=== PATIENT | male | born 1945 | race Caucasian/White ===

== ENCOUNTER 2021-11-16 07:01 | Observation (INO) | payer OTHER ==
[2021-11-16] MEDS ORDERED: NA CHLORIDE 0.9% 1,000 ML ONE ×2 (07:17→13:49)
[2021-11-16] MEDS ORDERED: FENTANYL CITR 100 MCG/2 ML ONE (09:12)
[2021-11-16] MEDS ORDERED: LIDOCAINE 2% MPF 5 ML VIAL ONE (09:12)
[2021-11-16] MEDS ORDERED: propofoL 200 MG/20 ML VIAL IV ONE (09:12)
[2021-11-16] MEDS ORDERED: ROCURONIUM 50 MG/5 ML VIAL IV ONE (09:12)
[2021-11-16] MEDS ORDERED: ONDANSETRON 4 MG/2 ML VIAL ONE (09:13)
[2021-11-16] MEDS ORDERED: CELECOXIB 100 MG CAPSULE ONE (09:15)
[2021-11-16] MEDS ORDERED: ACETAMINOPHEN 500 MG TAB ONE (09:15)
--- NOTE | 2021-11-16 09:43 | P.HP ---
Date of Service: 11/16/21 PC: This 76-year-old male presents for an elective laparoscopic cholecystectomy with intraoperative cholangiogram. HPC: Patient has been complaining of right upper quadrant abdominal pain, radiating into his back. He has had a few episodes of this recently and has caused him great concern. The pain he says has been intolerable, and he does not want to undergo another bout with this. PSHx: NAD PMHx: Hypertension Social Hx: No known allergies Sys R: No cough, wheeze, shortness of breath. No chest pain or palpitations. Says he has good exercise tolerance. No urinary complaints O/E: Awake alert vital signs are stable. Calm and in good spirits today HEENT: Nonicteric Chest: Chest movement equal bilaterally Abd: Soft nontender today [place]: Intact Data: Has documented cholelithiasis Impression: Chronic cholecystitis with cholelithiasis, biliary colic Plan: I will take him to the operating room for laparoscopic possible open cholecystectomy with a cholangiogram. The risks of this procedure have been discussed. The possibility of bleeding, infection, injury to bile ducts blood vessels and intestines has been described. The possible need for an open and/or further surgeries and procedures was discussed. He understands and wants us to proceed.
[2021-11-16] MEDS ORDERED: VECURONIUM 10 MG/VIAL IV ONE (09:58)
[2021-11-16] MEDS ORDERED: NS 0.9% VIAL 10 ML ONE (09:58)
[2021-11-16] MEDS ORDERED: GLYCOPYRROLATE 0.2 MG/ML SYR ONE ×2 (10:13→10:53)
[2021-11-16] MEDS ORDERED: NEOSTIGMINE 1 MG/ML -10 ML VIAL ONE (10:54)
--- NOTE | 2021-11-16 11:12 | P.OP ---
Preoperative diagnosis: Cholecystitis with cholelithiasis, biliary colic Postoperative diagnosis: The same Primary procedure: Laparoscopic cholecystectomy Secondary procedure: Cholangiogram Other procedure(s): Tap block Anesthesia: General anesthesia Estimated blood loss: Less than 10 cc Specimen: Gallbladder and contents Operative Technique: The patient was brought to the operating room and placed supine on the table. After the induction of adequate general endotracheal anesthesia, the area of the abdomen was prepped with a DuraPrep solution, and he was draped in usual aseptic manner. A subumbilical incision was made. This was brought down through the skin and subcutaneous tissue. A finger was used to dissect down to the fascia itself.. The Veress needle was used to enter the peritoneal cavity after elevating the anterior abdominal wall using a towel clip. We were able to enter the peritoneal cavity with a pop with the Veress needle. The hanging drop test was showing good flow of fluid into the peritoneal cavity. The abdomen then was easily insufflated to approximately 12 mmHg. Under direct vision a 5 mm trocar was placed in the area of the umbilicus. With our 5 mm scope in we were able to place the upper midline and 2 on the right lateral side of the abdominal wall. At this point we also did a tap block with 0.25% Marcaine solution. Attention was turned towards the umbilicus and under direct vision we were able to use a blunt trocar to allow us to place a 10 mm camera. With the patient placed in reverse Trendelenburg and rolled to the left the right upper quadrant was now accessible. The omentum was stuck up over the liver. This was gently brought back down. We could see the gallbladder with omental adhesions to his serosal surface. These were gently taken down using blunt and sharp dissection as well as judicious use of the electrocautery. As we swept around Murphy's pouch we gently push the tissue down and away. This area however did have a lot of dense reactive old scar tissue in the area. The cystic artery was identified. It was clipped and divided. The cystic duct was now seen. It was freed up to identify that this was the absolute structure. Having obtained the critical view a clip was placed between the gallbladder and the cystic duct. An opening was made into the cystic duct through which we obtained a cholangiogram the cholangiogram demonstrated good flow of fluid into the duodenum, however I was not happy with how the extrahepatic biliary tree appeared. We also seem to have filled the pancreatic duct. At this point the catheter was fed completely down into the duodenum and the balloon was blown up to verify its position. There does not an obstruction to the extrahepatic biliary tree that was palpable or visible on the cholangiogram. The catheter was now withdrawn. Clips were placed on the distal portion of the cystic duct. The gallbladder was now dissected free from the liver bed, placed into an Endo Catch, and brought out through the umbilical trocar site. At this point the abdomen is inspected to ensure adequate hemostasis. The irrigating fluid was aspirated from the peritoneal cavity. The umbilical trocar site was approximated using 2 sutures placed using the Endo Close and an absorbable suture. The pneumoperitoneum was then collapsed, the trochars removed, and the sutures tied. At the end of the procedure he was stable and sent to the recovery room. Needle sponge instrument count were correct. No drains were placed. Complications: None Transferred to: Recovery Room Condition: Good
[2021-11-16] MEDS: HYDROMORPHONE HCL 1 MG/ML INJ ONE ×4 (11:18→11:41)
[2021-11-16] MEDS ORDERED: INSULIN -REGULAR HUMAN 50 UNIT/0.5 ML ML ONE (11:25)
[2021-11-16 11:47] VITALS: O2SAT 96
--- NOTE | 2021-11-16 12:41 | RAD REPORT ---
EXAM DESCRIPTION: RAD - Cholangiogram Oper-Xray Or - 11/16/2021 12:27 pm CLINICAL HISTORY: LAP MOE Abdominal pain COMPARISON: Abdomen Exam Complete dated 10/29/2021 FINDINGS: Cystic duct injection was performed by operating surgeon. Common bile duct is normal in ca liber without retained stone visible. Total fluoro time: 0.5 minutes 10 fluoroscopic images submitted. IMPRESSION: No retained common bile duct stone.
[2021-11-16] MEDS ORDERED: LIDOCAINE JELLY 2% 5 ML SYRINGE TOP ONE (15:21)
[2021-11-16] MEDS ORDERED: PROMETHAZINE INJ 25 MG/ML AMP IV PRN (15:58)
[2021-11-16] MEDS ORDERED: MORPHINE 2 MG/ML SYR IV PRN (15:58)
--- OUTSIDE RECORDS SUMMARY | 2021-11-16 16:03 | XMS REPORT | Continuity of Care Document ---
:1945 Author Organization [facility] t Address [address] [place] [address] [address]. [address] [place] [address] Care Team Providers Name Role Phone Rachel Tyrone Primary Care Physician Chris HESTER Attending Clinician DONN Attending Clinician Unavailable LISA Attending Clinician Unavailable Doctor Unassigned, Name Attending Clinician Unavailable Donn HESTER Attending Clinician Kasia HESTER Attending Clinician Faustino BECKER Admitting Clinician Unavailable Payers Payer Name Policy Type Policy Number Effective Date Expiration Date S ource Problems Condition Condition Condition Status Onset Resolution Last Treating Co mments Source Name Details Category Date Date Treatment Clinician Date Obesity Obesity Disease Active Univers (BMI (BMI 4-28 ity of 30-39.9) 30-39.9) 00:00: [place] 00 Medical Branch PAD PAD Disease Active Univers (periphera (periphera 4-28 it y of l artery l artery 00:00: [place] disease) disease) 00 Medica l Branch 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 [place] Ischemic Ischemic Disease Active Unive rs cardiomyop cardiomyop 4 it y of athy athy 00:00: Medical Branch Coronary Coronary Disease Active Unive rs artery artery 404 ity of disease disease 00:00: [place] involving involving 00 Medi adalberto coeur d'alene coeur d'alene Branch coronary coronary artery artery without without angina angina pectoris pectoris S/P left S/P left Disease Active Unive rs heart heart 3-17 ity of catheteriz catheteriz [place] at[place] at[place] by 00 Medica l percutaneo percutaneo Br anch us us approach approach STEMI (ST STEMI (ST Disease Active Uni vers elevation elevation 2-12 ity of myocardial myocardial [place] infarction infarction 00 Me dical ) ) Branch Allergies, Adverse Reactions, Alerts Allergy Allergy Status Severity Reaction(s) Onset Inactive Treating Comm ents Source Name Type Date Date Clinician ICOSAPEN DRUG Active Low Other-Cmnt Univ ers T ETHYL INGREDI 6- ity of 00:00: [place] [facility] Icosapen Drug Active Other - See States Uni vers t Ethyl Intolera comments 11-19 causes ity o f nce 00:00: severe constipat Medical ion and Branch does not wish to take again Furosemi Propensi Active Other - See Patient Univers de ty to comments 08-09 states ity of adverse 00:00: this [place] reaction 00 makes him Medic al s have to Branch use the restroom right away FUROSEMI DRUG Active Other-Cmnt Univ ers DE INGREDI 08-09 ity of 00:00: [place] 00 Medical Branch Lisinopr Propensi Active Cough Univer s il ty to 01-10 ity of adverse 00:00: [place] reaction 00 Medical s Branch LISINOPR DRUG Active COUGH Univers IL INGREDI 01-10 ity of 00:00: [place] 00 Medical Branch Penicill Propensi Active Itching Unive rs in ty to 16 ity of adverse 00:00: [place] reaction 00 Medical s to Branch drug PENICILL DRUG Active Med ITCHING Univers IN INGREDI -16 ity of 00:00: [place] 00 Medical Branch Social History Social Habit Start Date Stop Date Quantity Comments Source Exposure to Not sure [facility] SARS-CoV-2 (event) Medica l [place] Alcohol intake 2021-09-06 2021-09-06 0 /d [facility] 00:00:00 00:00:00 Medical Branch Tobacco use and 2015-07-23 2015-07-23 Never used [facility] exposure 00:00:00 00:00:00 Medical Branch Sex [birth year] [facility] 00:00:00 00:00:00 Medical Branch Smoking Status Start Date Stop Date Source Never smoker [facility] Medications Ordered Filled Start Stop Current Ordering Indication Dosage Frequency Signature Comments Components Source Medication Medication Date Date Medication? Clinician (SIG) Name Name losartan Yes [id number] 100mg Take 1 U nivers 100 mg 5-19 tablet by ity of tablet 00:00: mouth [place] 00 daily. Medical Branch atorvastati Yes [id number] 80mg Take 1 Univers n 80 mg 4-13 tablet by ity of tablet 00:00: mouth at [place] 00 bedtime. Medical Branch atorvastati Yes [id number] 80mg Take 1 Univers n 80 mg 4-13 tablet by ity of tablet 00:00: mouth at [place] 00 bedtime. Medical Branch metroNIDAZO Yes [id number] 500mg Take 1 Univers LE 500 mg 3-29 tablet by ity o f tablet 00:00: mouth [place] 00 every 8 Medical (eight) Branch hours. dicyclomine Yes [id number] 20mg Take 1 Univers 20 mg 3-29 tablet by ity of tablet 00:00: mouth 4 [place] 00 (four) Medical times Branch daily. cephALEXin 202-0 Yes [id number] 500mg Take 1 Univers (KEFLEX) 3-29 capsule by ity o f 500 mg 00:00: mouth 3 [place] capsule 00 (three) Medical times Branch daily. ondansetron 2021-0 Yes [id number] 4mg Take 1 Univers 4 mg 3-29 tablet by ity of disintegrat 00:00: mouth [place] ing tablet 00 every 4 Medica l (four) Branch hours as needed for Nausea and Vomiting (N/V). metroNIDAZO 2021-0 Yes [id number] 500mg Take 1 Univers LE 500 mg 3-29 tablet by ity o f tablet 00:00: mouth [place] 00 every 8 Medical (eight) Branch hours. dicyclomine 2021-0 Yes [id number] 20mg Take 1 Univers 20 mg 3-29 tablet by ity of tablet 00:00: mouth 4 [place] 00 (four) Medical times Branch daily. cephALEXin 2021-0 Yes [id number] 500mg Take 1 Univers (KEFLEX) 3-29 capsule by ity o f 500 mg 00:00: mouth 3 [place] capsule 00 (three) Medical times Branch daily. ondansetron 2021-0 Yes [id number] 4mg Take 1 Univers 4 mg 3-29 tablet by ity of disintegrat 00:00: mouth [place] ing tablet 00 every 4 Medica l (four) Branch hours as needed for Nausea and Vomiting (N/V). sitaGLIPtin Yes 50mg Take 50 mg Univers 50 mg 1-28 by mouth ity of tablet 10:54: daily. [place] [facility] imipramine 2021-0 Yes 10mg Take 10 mg U nivers 10 mg 1-28 by mouth ity of tablet 10:54: at [place] 01 bedtime. Medical Branch hydroCHLORO 2021-0 Yes 12.5mg Take 12.5 Univers thiazide 1-28 mg by ity of 12.5 mg 10:54: mouth [place] capsule 01 daily. Medical Branch ascorbic 2021-0 Yes Take by Unive rs acid 1-28 mouth. ity of (VITAMIN C 10:54: [place] ORAL) Medical Branch sitaGLIPtin 2021-0 Yes 50mg Take 50 mg Univers 50 mg 1-28 by mouth ity of tablet 10:54: daily. [place] 01 Medical Branch imipramine 0 Yes 10mg Take 10 mg U nivers 10 mg 1-28 by mouth ity of tablet 10:54: at [place] bedtime. Medical Branch hydroCHLORO 0 Yes 12.5mg Take 12.5 Univers thiazide 1-28 mg by ity of 12.5 mg 10:54: mouth [place] capsule 01 daily. Medical Branch ascorbic 0 Yes Take by Unive rs acid 1-28 mouth. ity of (VITAMIN C 10:54: [place] ORAL) Medical Branch sitaGLIPtin 0 Yes 50mg Take 50 mg Univers 50 mg 1-28 by mouth ity of tablet 10:54: daily. Medical Branch imipramine 0 Yes 10mg Take 10 mg U nivers 10 mg 1-28 by mouth ity of tablet 10:54: at [place] bedtime. Medical Branch hydroCHLORO 0 Yes 12.5mg Take 12.5 Univers thiazide 1-28 mg by ity of 12.5 mg 10:54: mouth [place] capsule 01 daily. Medical Branch ascorbic 0 Yes Take by Unive rs acid 1-28 mouth. ity of (VITAMIN C 10:54: [place] ORAL) Medical Branch sitaGLIPtin 0 Yes 50mg Take 50 mg Univers 50 mg 1-28 by mouth ity of tablet 10:54: daily. Medical Branch imipramine 0 Yes 10mg Take 10 mg U nivers 10 mg 1-28 by mouth ity of tablet 10:54: at [place] bedtime. Medical Branch hydroCHLORO 2021-0 Yes 12.5mg Take 12.5 Univers thiazide 1-28 mg by ity of 12.5 mg 10:54: mouth [place] capsule 01 daily. Medical Branch ascorbic 0 Yes Take by Unive rs acid 1-28 mouth. ity of (VITAMIN C 10:54: [place] ORAL) Medical Branch sitaGLIPtin 0 Yes 50mg Take 50 mg Univers 50 mg 1-28 by mouth ity of tablet 10:54: daily. Medical Branch imipramine 0 Yes 10mg Take 10 mg U nivers 10 mg 1-28 by mouth ity of tablet 10:54: at [place] bedtime. Medical Branch hydroCHLORO 2021-0 Yes 12.5mg Take 12.5 Univers thiazide 1-28 mg by ity of 12.5 mg 10:54: mouth [place] capsule 01 daily. Medical Branch ascorbic Yes Take by Unive rs acid 1-28 mouth. ity of (VITAMIN C 10:54: [place] ORAL) 01 Medical Branch losartan 2020-06 Yes [id number] 100mg Take 1 U nivers 100 mg 1-10 tablet by ity of tablet 00:00: mouth [place] 00 daily. Medical [facility] Branch call clinic to schedule follow up appointmen t for future refills. losartan 2020-06 Yes [id number] 100mg Take 1 U nivers 100 mg 1-10 tablet by ity of tablet 00:00: mouth [place] 00 daily. Medical [facility] Branch call clinic to schedule follow up appointmen t for future refills. losartan 2020-06 Yes [id number] 100mg Take 1 U nivers 100 mg 1-10 tablet by ity of tablet 00:00: mouth [place] 00 daily. [facility] Branch call clinic to schedule follow up appointmen t for future refills. losartan 2020-06 Yes [id number] 100mg Take 1 U nivers 100 mg 1-10 tablet by ity of tablet 00:00: mouth [place] 00 daily. [facility] call clinic to schedule follow up appointmen t for future refills. losartan 2020-06- No [id number] 100mg Take 1 Univers 100 mg 1-10 05-19 tablet by ity of tablet 00:00: 00:00 mouth [place] 00 :00 daily. [facility] call clinic to schedule follow up appointmen t for future refills. carvediloL 2020-06 Yes [id number] 12.5mg Take 1 Univers 12.5 mg 1-02 tablet by ity of tablet 00:00: mouth 2 [place] 00 (two) Medical times [place] daily with meals. carvediloL 2020-06 Yes [id number] 12.5mg Take 1 Univers 12.5 mg 1-02 tablet by ity of tablet 00:00: mouth 2 [place] 00 (two) Medical times [place] daily with meals. carvediloL 2020-06 Yes [id number] 12.5mg Take 1 Univers 12.5 mg 1-02 tablet by ity of tablet 00:00: mouth 2 [place] 00 (two) Medical times Branch daily with meals. carvediloL 2020-06 Yes [id number] 12.5mg Take 1 Univers 12.5 mg 1-02 tablet by ity of tablet 00:00: mouth 2 [place] 00 (two) Medical times Branch daily with meals. carvediloL 2020-1 Yes [id number] 12.5mg Take 1 Univers 12.5 mg 1-02 tablet by ity of tablet 00:00: mouth 2 [place] 00 (two) Medical times Branch daily with meals. clopidogreL 2021-0 Yes [id number] 75mg Take 1 Univers 75 mg 8-13 tablet by ity of tablet 00:00: mouth [place] 00 daily. Medical Branch clopidogreL 2021-0 Yes [id number] 75mg Take 1 Univers 75 mg 8-13 tablet by ity of tablet 00:00: mouth [place] 00 daily. Medical Branch clopidogreL 2021-0 Yes [id number] 75mg Take 1 Univers 75 mg 8-13 tablet by ity of tablet 00:00: mouth [place] 00 daily. Medical Branch clopidogreL 2021-0 Yes [id number] 75mg Take 1 Univers 75 mg 8-13 tablet by ity of tablet 00:00: mouth [place] 00 daily. Medical Branch clopidogreL 2021-0 Yes [id number] 75mg Take 1 Univers 75 mg 8-13 tablet by ity of tablet 00:00: mouth [place] 00 daily. Medical Branch linagliptin 2020-0 Yes Take by Un balbina (TRADJENTA 4-28 mouth. ity of ORAL) 13:26: [place] [address] Medical Branch nortriptyli 1-0 Yes 10mg Take 10 mg Univers ne 10 mg 4-28 by mouth 3 ity o f capsule 13:26: (three) [place] [address] times Medical daily. Branch linagliptin 2020-0 Yes Take by Un balbina (TRADJENTA 4-28 mouth. ity of ORAL) 13:26: [place] [address] Medical Branch nortriptyli 1-0 Yes 10mg Take 10 mg Univers ne 10 mg 4-28 by mouth 3 ity o f capsule 13:26: (three) [place] [address] times Medical daily. Branch linagliptin 1-0 Yes Take by Un balbina (TRADJENTA 4-28 mouth. ity of ORAL) 13:26: [place] [address] Medical Branch nortriptyli 1-0 Yes 10mg Take 10 mg Univers ne 10 mg 4-28 by mouth 3 ity o f capsule 13:26: (three) [place] 38 times Medical daily. Branch linagliptin 2020-0 Yes Take by Un balbina (TRADJENTA 4-28 mouth. ity of ORAL) 13:26: [place] [address] Medical Branch nortriptyli 2020-0 Yes 10mg Take 10 mg Univers ne 10 mg 4-28 by mouth 3 ity o f capsule 13:26: (three) [place] 38 times Medical daily. Branch linagliptin 0 Yes Take by Un balbina (TRADJENTA 4-28 mouth. ity of ORAL) 13:26: [place] [address] Medical Branch nortriptyli 2020-0 Yes 10mg Take 10 mg Univers ne 10 mg 4-28 by mouth 3 ity o f capsule 13:26: (three) [place] 38 times Medical daily. Branch atorvastati 2020-0 Yes [id number] 80mg Take 1 Univers n 80 mg 3-03 tablet by ity of tablet 00:00: mouth at [place] 00 bedtime. Medical Branch atorvastati 2020-0 Yes [id number] 80mg Take 1 Univers n 80 mg 3-03 tablet by ity of tablet 00:00: mouth at [place] 00 bedtime. Medical Branch atorvastati 2020-0 Yes [id number] 80mg Take 1 Univers n 80 mg 3-03 tablet by ity of tablet 00:00: mouth at [place] 00 bedtime. Medical Branch atorvastati 2020-0 2022- No [id number] 80mg Take 1 Univers n 80 mg 3-03 04-13 tablet by ity of tablet 00:00: 00:00 mouth at [place] 00 :00 bedtime. Medical Branch lactulose 2020-0 Yes [id number] 30mL Take 30 mL Univers 10 gram/15 9-12 by mouth 3 ity of mL oral 00:00: (three) [place] solution 00 times Medical daily as Branch needed for Constipati on or For bowel movement. polyethylen 2020-0 Yes [id number] 17g Take 17 g Univers e glycol 9-12 by mouth 2 ity o f (MIRALAX) 00:00: (two) [place] 17 00 times Medical gram/dose daily. Branch powder lactulose 2020-0 Yes [id number] 30mL Take 30 mL Univers 10 gram/15 9-12 by mouth 3 ity of mL oral 00:00: (three) [place] solution 00 times Medical daily as Branch needed for Constipati on or For bowel movement. polyethylen 2020-0 Yes [id number] 17g Take 17 g Univers e glycol 9-12 by mouth 2 ity o f (MIRALAX) 00:00: (two) [place] 17 00 times Medical gram/dose daily. Branch powder lactulose 2020-0 Yes [id number] 30mL Take 30 mL Univers 10 gram/15 9-12 by mouth 3 ity of mL oral 00:00: (three) [place] solution 00 times Medical daily as Branch needed for Constipati on or For bowel movement. polyethylen 2020-0 Yes [id number] 17g Take 17 g Univers e glycol 9-12 by mouth 2 ity o f (MIRALAX) 00:00: (two) [place] 17 00 times Medical gram/dose daily. Branch powder lactulose 2020-0 Yes [id number] 30mL Take 30 mL Univers 10 gram/15 9-12 by mouth 3 ity of mL oral 00:00: (three) [place] solution 00 times Medical daily as Branch needed for Constipati on or For bowel movement. polyethylen 2020-0 Yes [id number] 17g Take 17 g Univers e glycol 9-12 by mouth 2 ity o f (MIRALAX) 00:00: (two) [place] 17 00 times Medical gram/dose daily. Branch powder lactulose 2020-0 Yes [id number] 30mL Take 30 mL Univers 10 gram/15 9-12 by mouth 3 ity of mL oral 00:00: (three) [place] solution 00 times Medical daily as Branch needed for Constipati on or For bowel movement. polyethylen 2020-0 Yes [id number] 17g Take 17 g Univers e glycol 9-12 by mouth 2 ity o f (MIRALAX) 00:00: (two) [place] 17 00 times Medical gram/dose daily. Branch powder mirabegron 2020-0 Yes [id number] 50mg Take 1 Univers 50 mg 5-15 tablet by ity of tablet 00:00: mouth [place] 00 daily. Medical Branch mirabegron 2020-0 Yes [id number] 50mg Take 1 Univers 50 mg 5-15 tablet by ity of tablet 00:00: mouth [place] 00 daily. Medical Branch mirabegron 2020-0 Yes [id number] 50mg Take 1 Univers 50 mg 5-15 tablet by ity of tablet 00:00: mouth [place] 00 daily. Medical Branch mirabegron 2020-0 Yes [id number] 50mg Take 1 Univers 50 mg 5-15 tablet by ity of tablet 00:00: mouth [place] 00 daily. Medical Branch mirabegron 2019-0 Yes [id number] 50mg Take 1 Univers 50 mg 5-15 tablet by ity of tablet 00:00: mouth [place] 00 daily. Medical Branch nitroglycer Yes [id number] .4mg Place 1 Univers in 7-30 tablet ity of (NITROSTAT) 00:00: under the [place] 0.4 mg 00 tongue Medical sublingual every 5 Branc h tablet (five) minutes as needed for Chest pain. nitroglycer Yes [id number] .4mg Place 1 Univers in 7-30 tablet ity of (NITROSTAT) 00:00: under the [place] 0.4 mg 00 tongue Medical sublingual every 5 Branc h tablet (five) minutes as needed for Chest pain. nitroglycer Yes [id number] .4mg Place 1 Univers in 7-30 tablet ity of (NITROSTAT) 00:00: under the [place] 0.4 mg 00 tongue Medical sublingual every 5 Branc h tablet (five) minutes as needed for Chest pain. nitroglycer Yes [id number] .4mg Place 1 Univers in 7-30 tablet ity of (NITROSTAT) 00:00: under the [place] 0.4 mg 00 tongue Medical sublingual every 5 Branc h tablet (five) minutes as needed for Chest pain. nitroglycer Yes [id number] .4mg Place 1 Univers in 7-30 tablet ity of (NITROSTAT) 00:00: under the [place] 0.4 mg 00 tongue Medical sublingual every 5 Branc h tablet (five) minutes as needed for Chest pain. NOVOLOG Yes [id number] 30U inject 30 Univers FLEXPEN 4-15 Units ity of U-100 00:00: under the [place] INSULIN 100 00 skin 3 Medica l unit/mL (three) Branch injection times daily before meals. NOVOLOG 0 Yes [id number] 30U inject 30 Univers FLEXPEN 4-15 Units ity of U-100 00:00: under the [place] INSULIN 100 00 skin 3 Medica l unit/mL (three) Branch injection times daily before meals. NOVOLOG Yes [id number] 30U inject 30 Univers FLEXPEN 4-15 Units ity of U-100 00:00: under the [place] INSULIN 100 00 skin 3 Medica l unit/mL (three) Branch injection times daily before meals. NOVOLOG 2019-0 Yes [id number] 30U inject 30 Univers FLEXPEN 4-15 Units ity of U-100 00:00: under the [place] INSULIN 100 00 skin 3 Medica l unit/mL (three) Branch injection times daily before meals. NOVOLOG 2019-0 Yes [id number] 30U inject 30 Univers FLEXPEN 4-15 Units ity of U-100 00:00: under the [place] INSULIN 100 00 skin 3 Medica l unit/mL (three) Branch injection times daily before meals. Insulin 2018-0 Yes [id number] Use as Uni vers [place], 3- directed ity of Disposable, 00:00: three time [place] (BD INSULIN 00 a day Medical PEN NEEDLE Branch UF) 31 gauge x 5/16" Ndle Insulin 2019-0 Yes [id number] Use as Uni vers [place], 3- directed ity of Disposable, 00:00: three time [place] (BD INSULIN 00 a day Medical PEN NEEDLE Branch UF) 31 gauge x 5/16" Ndle Insulin 2019-0 Yes [id number] Use as Uni vers [place], 3- directed ity of Disposable, 00:00: three time [place] (BD INSULIN 00 a day Medical PEN NEEDLE Branch UF) 31 gauge x 5/16" Ndle Insulin 2019-0 Yes [id number] Use as Uni vers [place], 3- directed ity of Disposable, 00:00: three time [place] (BD INSULIN 00 a day Medical PEN NEEDLE Branch UF) 31 gauge x 5/16" Ndle Insulin 2019-0 Yes [id number] Use as Uni vers [place], 3- directed ity of Disposable, 00:00: three time [place] (BD INSULIN 00 a day Medical PEN NEEDLE Branch UF) 31 gauge x 5/16" Ndle aspirin 81 2018-0 Yes 81mg Take 1 Unive rs mg EC 7-30 tablet by ity of tablet 00:00: mouth [place] 00 daily. Medical Branch aspirin 81 2018-0 Yes 81mg Take 1 Unive rs mg EC 7-30 tablet by ity of tablet 00:00: mouth 00 daily. Medical Branch aspirin 81 2018-0 Yes 81mg Take 1 Unive rs mg EC 7-30 tablet by ity of tablet 00:00: mouth [place] 00 daily. Medical Branch aspirin 81 2018-0 Yes 81mg Take 1 Unive rs mg EC 7-30 tablet by ity of tablet 00:00: mouth [place] 00 daily. Medical Branch aspirin 81 2018-0 Yes 81mg Take 1 Unive rs mg EC 7-30 tablet by ity of tablet 00:00: mouth [place] 00 daily. Medical Branch Immunizations Ordered Filled Immunization Date Status Comments [facility] Immunization Name Name SARS-COV-2 COVID-19 2021-02-15 Completed Unive rsity of MODERNA VACCINE 00:00:00 [facility] ical Branch SARS-COV-2 COVID-19 2021-02-15 Completed Unive rsity of MODERNA VACCINE 00:00:00 [facility] ical Branch SARS-COV-2 COVID-19 2021-02-15 Completed Unive rsity of MODERNA VACCINE 00:00:00 [facility]-19 2021-02-15 Completed Unive rsity of MODERNA VACCINE 00:00:00 [facility] ical Branch SARS-COV-2 COVID-19 2021-02-15 Completed Unive rsity of MODERNA VACCINE 00:00:00 [facility] ical Branch SARS-COV-2 COVID-19 2020-07-14 Completed Unive rsity of MODERNA VACCINE 00:00:00 [facility] ical Branch SARS-COV-2 COVID-19 2020-07-14 Completed Unive rsity of MODERNA VACCINE 00:00:00 [facility] ical Branch SARS-COV-2 COVID-19 2020-07-14 Completed Unive rsity of MODERNA VACCINE 00:00:00 [facility] ical Branch SARS-COV-2 COVID-19 2020-07-14 Completed Unive rsity of MODERNA VACCINE 00:00:00 [facility] ical Branch SARS-COV-2 COVID-19 2020-07-14 Completed Unive rsity of MODERNA VACCINE 00:00:00 [facility] ical Branch SARS-COV-2 COVID-19 2020-06-16 Completed Unive rsity of MODERNA VACCINE 00:00:00 [facility] SARS-COV-2 COVID-19 2020-06-16 Completed Unive rsity of MODERNA VACCINE 00:00:00 [facility] SARS-COV-2 COVID-19 2020-06-16 Completed Unive rsity of MODERNA VACCINE 00:00:00 [facility] SARS-COV-2 COVID-19 2020-06-16 Completed Unive rsity of MODERNA VACCINE 00:00:00 [facility] SARS-COV-2 COVID-19 2020-06-16 Completed Unive rsity of MODERNA VACCINE 00:00:00 [facility] Td 2020-02-21 Completed University of 00:00:00 [facility] Td 2020-02-21 Completed University of 00:00:00 [facility] Td 2020-02-21 Completed University of 00:00:00 [facility] Td 2020-02-21 Completed University of 00:00:00 [facility] Td 2020-02-21 Completed University of 00:00:00 [facility] Influenza High Dose 2019-03-10 Completed Unive rsity of 00:00:00 [facility] Influenza High Dose 2019-03-10 Completed Unive rsity of 00:00:00 [facility] Influenza High Dose 2019-03-10 Completed Unive rsity of 00:00:00 [facility] Influenza High Dose 2019-03-10 Completed Unive rsity of 00:00:00 [facility] Influenza High Dose 2019-03-10 Completed Unive rsity of 00:00:00 [facility] Influenza Virus 2015-03-11 Completed Universit y of Vaccine 00:00:00 [facility] Influenza Virus 2015-03-11 Completed Universit y of Vaccine 00:00:00 [facility] Influenza Virus 2015-03-11 Completed Universit y of Vaccine 00:00:00 [facility] Influenza Virus 2015-03-11 Completed Universit y of Vaccine 00:00:00 [facility] Influenza Virus 2015-03-11 Completed Universit y of Vaccine 00:00:00 [facility] Pneumococcal 13 2011-06-11 Completed Universit y of Conjugate, PCV13 00:00:00 [facility] dical (Prevnar 13) Branch Pneumococcal 13 2011-06-11 Completed Universit y of Conjugate, PCV13 00:00:00 [place] Me dical (Prevnar 13) Branch Pneumococcal 13 2011-06-11 Completed Universit y of Conjugate, PCV13 00:00:00 [facility] dical (Prevnar 13) Branch Pneumococcal 13 2011-06-11 Completed Universit y of Conjugate, PCV13 00:00:00 [place] Me dical (Prevnar 13) Branch Pneumococcal 13 2011-06-11 Completed Universit y of Conjugate, PCV13 00:00:00 [facility] dical (Prevnar 13) Branch Vital Signs Vital Name Observation Time Observation Value Comments Source Systolic blood 2021-08-29 20:30:00 149 mm[Hg] Univer sity of pressure [facility] Diastolic blood 2021-08-29 20:30:00 79 mm[facility]Hg[facility] 2021-08-29 20:30:00 68 /min [facility] Body temperature 2021-08-29 20:30:00 36.06 [facility] 2021-08-29 20:30:00 18 /min [facility] Body height 2021-08-29 20:30:00 177.8 cm [facility] Body weight 2021-08-29 20:30:00 110.133 kg [facility] BMI 2021-08-29 20:30:00 34.84 kg/m2 [facility] Oxygen saturation in 2021-08-29 20:30:00 95 /min [facility] Arterial blood by [facility] Pulse oximetry [place] Procedures Procedure Date / Time Performed Performing Clinician Sour e NOTICE OF PRIVACY 2021-09-06 10:02:48 Doctor Unassigned, No [facility] PRACTICES Name Medical [place] Encounters Start End Encounter Admission Attending Care Care Encounter Source Date/Time Date/Time Type Type Clinicians Facility Department ID 2021-10-25 2021-10-25 Radha Perez [facility] [id number] Univers 00:00:00 00:00:00 Jeanie HEARN [id number] Nina [id number] Bry MARC [phone] Me dical NAL [address] BUILDING 2021-09-27 2021-09-27 Outpatient R [facility] [id number] Univers 15:00:00 15:00:00 [facility] 2021-09-19 2021-09-19 [facility] [id number] Univers 00:00:00 00:00:00 Jeanie HEARN [id number] ity of [id number] [phone] Wy dical NAL 0[address] Branch BUILDING 2021-09-06 2021-09-06 Emergency X LISA, [facility] ERT [id number] Univers 05:13:00 11:20:00 JULIETA ity of [facility] 2021-09-06 2021-09-06 Orders Doctor LAWRENCE [id number] Univers 00:00:00 00:00:00 Only Unassigned, ALEX [id number] ity of [place] [facility] [id number] [place] [phone] [facility] [address] Branch 2021-08-31 2021-08-31 [facility]phone [facility] [id number] Univers 00:00:00 00:00:00 [facility] [id number] it [place] of [id number] [facility] [phone] [facility] PRIMARY & [address] SPECIALTY CARE 2021-08-29 2021-08-29 Office [facility] [id number] Univers 15:00:00 16:17:53 Visit Haja HEARN [id number] i ty of [id number] [phone] Wy dical [facility] [address] [facility] Results This patient has no known results.
[2021-11-16] MEDS ORDERED: HYDROCODONE/APAP 10/325 TAB PO ONE (17:00)
[2021-11-16] MEDS: NA CHLORIDE 0.9% 1,000 ML IV SCH (17:35)
[2021-11-16 17:53] VITALS: BMI 33.7
[2021-11-16] MEDS: HYDROCODONE/APAP 7.5/325 MG TAB PO PRN (22:22)
[2021-11-17] MEDS: HYDROCODONE/APAP 7.5/325 MG TAB PO PRN ×2 (04:46→18:36)
[2021-11-17] MEDS ORDERED: D50W 25 GM/50 ML SYRINGE IV PRN (08:37)
[2021-11-17] MEDS ORDERED: GLUCAGON 1 MG/VIAL IM PRN (08:37)
[2021-11-17] MEDS: INSULIN -REGULAR HUMAN 50 UNIT/0.5 ML ML SQ SCH ×3 (08:58→16:57)
[2021-11-17] MEDS ORDERED: TAMSULOSIN 0.4 MG SR CAP PO SCH (09:00)
[2021-11-17] MEDS: NA CHLORIDE 0.9% 1,000 ML IV SCH (12:00)
[2021-11-17] MEDS ORDERED: D10W 250 ML BAG IV PRN (14:00)
[2021-11-17 17:29] VITALS: BP 118/56; TEMP 99.7
--- NOTE | 2021-11-17 22:30 | P.SSS ---
Patient History Date of Service: 11/17/21 Reason for admission: CHOLECYSTECTOMY History of Present Illness: MR LEE IS A PATIENT OF [facility]INE WITH UNCONTROLLED DM, HTN, CAD, WHO WENT TO [facility] ER WITH FEVER AND VOMITING, HE WAS SENT HOME AND CAME TO MY OFFICE WITH SAME SYMPTOMS. I SUSPECTED CHOLECYSTITIS, DID SONOGRAM AND CONFIRMED, CALLED DR. GEORGE WHO AGREED TO DO SURGERY. BROUGHT ME TO HIS ROOM HE WAS NOT DOING GOOD WITH URINATION. LATER AFTER FLOMAX HE WAS ABLE TO URINATE, I WORKED HON HIS HYPERGLYCEMIA. HE TOLERATED FOOD AND WAS ABLE TO GO HOME. HE DOES NOT FOLLOW DIET WELL. HE HAD THREE LARGE PIECES OF [place]RI[place] TOAST IN HIS PLATE TODAY. Allergies Penicillins Allergy (Verified 11/16/21 08:19) Rash Home medications list reviewed: Yes Home Medications: Ascorbic Acid [Vitamin C] 2,000 mg PO DAILY 11/11/21 Aspirin [Aspirin EC 81 MG] 81 mg PO DAILY 11/11/21 Atorvastatin Calcium [Lipitor] 40 mg PO BEDTIME 11/11/21 Carvedilol [Coreg] 12.5 mg PO BID 11/11/21 Clopidogrel Bisulfate [Plavix] 75 mg PO DAILY 11/11/21 Losartan Potassium [Cozaar] 50 mg PO DAILY 11/11/21 Ubidecarenone [Co Q-10] 100 mg PO DAILY 11/11/21 - Past Medical/Surgical History Has patient received pneumonia vaccine in the past: Yes -: TURP -: Stents x2 -: Appy - Social History Smoking Status: Never smoker Alcohol use: No CD- Drugs: No Caffeine use: No Place of Residence: Home Physical Examination - Vital Signs Temperature: 99.7 F Blood Pressure: 118/56 Pulse: 90 Respirations: 18 Pulse Ox (%): 94 - Physical Exam General: Mild distress HEENT: Atraumatic, PERRLA, Mucous membr. moist/pink, EOMI, Sclerae nonicteric Neck: Supple, 2+ carotid pulse no bruit, No LAD, Without JVD or thyroid abnormality Respiratory: Clear to auscultation bilaterally, Normal air movement Cardiovascular: Regular rate/rhythm, Normal S1 S2 Gastrointestinal: Normal bowel sounds, No tenderness Musculoskeletal: No tenderness Integumentary: No rashes Neurological: Normal gait, Normal speech, Normal strength at 5/5 x4 extr, Normal tone, Normal affect Lymphatics: No axilla or inguinal lymphadenopathy - Diagnosis (Problem(s)) (1) Acute cholecystitis Status: Acute Plan: IV ABX. SURGERY PERFORMED BY DR. GEORGE. DC TODAY , STABLE. (2) Diabetic vasculopathy Status: Chronic Plan: AGGRESSIVE SL SCALE. HEHAS INSLIN PUMP FOR HOME. (3) Urinary retention due to benign prostatic hyperplasia Status: Chronic Plan: FLOMAX AND AVODART SHOULD HELP. - Disposition Disposition: ROUTINE DISCHARGE
== END 2021-11-17 19:00 | disposition home or self-care (01) ==
LOC: OR 07:01 → 2ND 15:54
PROVIDERS: ADMIT Surgery; ATTEND Surgery
PROC: BF0CYZZ Plain Radiography of Hepatobiliary System, All using Other Contrast (ICD-10-PCS; 2021-11-16)
PROC: 0FT44ZZ Resection of Gallbladder, Percutaneous Endoscopic Approach (ICD-10-PCS; principal; 2021-11-16 09:00)
DX: K80.12 Calculus of gallbladder with acute and chronic cholecystitis without obstruction (principal); N40.1 Benign prostatic hyperplasia with lower urinary tract symptoms; R33.8 Other retention of urine; E11.65 Type 2 diabetes mellitus with hyperglycemia; Z91.11 Patient's noncompliance with dietary regimen; I10 Essential (primary) hypertension; I25.10 Atherosclerotic heart disease of native coronary artery without angina pectoris; M31.8 Other specified necrotizing vasculopathies; I25.2 Old myocardial infarction; Z95.5 Presence of coronary angioplasty implant and graft; Z79.02 Long term (current) use of antithrombotics/antiplatelets; Z79.82 Long term (current) use of aspirin; Z79.899 Other long term (current) drug therapy; Z88.0 Allergy status to penicillin; Z20.822 Contact with and (suspected) exposure to COVID-19
CPT/HCPCS: 82947 ×8; 88304; 74300; 94010; 47563; U0002; J2704; J2710; J2550 ×2; J1815 ×4; J3010; J2270; J1170 ×2; G0378 ×3; J7030 ×2; J2405; G0379